=== PATIENT | male | born 1990 | race Caucasian/White ===

== ENCOUNTER 2020-09-02 21:44 | Emergency (ER) | payer OTHER ==
[~2020-09-02] VITALS: Ht 170.2 cm; Wt 83.2 kg
[2020-09-02] MEDS ORDERED: BACITRACIN 0.9 GM PACKET OINTMENT TP ONE (22:45)
[2020-09-02] MEDS ORDERED: CLINDAMYCIN HCL 150 MG CAPSULE PO ONE (22:45)
[2020-09-02] MEDS ORDERED: ACETAMINOPHEN 500 MG TABLET PO ONE (22:45)
[2020-09-03 00:08] VITALS: BP 126/82
== END 2020-09-03 00:09 | disposition home or self-care (01) ==
LOC: EMS 21:44
DX: L03.011 Cellulitis of right finger (principal)
CPT/HCPCS: 99284; 73140-TC; Z7502; Z7610